=== PATIENT | male | born 1980 | race Hispanic/Latino ===

== ENCOUNTER 2020-04-26 10:16 | Inpatient (IN) | payer OTHER ==
[~2020-04-26] VITALS: Ht 172.7 cm; Wt 169.8 kg
[2020-04-26 11:18] LABS: BASOPHILS % (AUTO) 0.2 % (0.0-5.0); EOSINOPHILS % (AUTO) 0.4 % (0.0-8.0); HEMATOCRIT 36.3 % (42-54); LYMPHOCYTES % (AUTO) 10.6 % (21.0-51.0); MEAN CORPUSCULAR HEMOGLOBIN 28.8 pg (27.0-33.0); MEAN CORPUSCULAR HGB CONC 33.9 g/dL (32.0-36.0); MONOCYTES % (AUTO) 10.8 % (3.0-13.0); NEUTROPHILS % (AUTO) 76.6 % (40.0-77.0); NUCLEATED RED BLOOD CELLS 0.2 % (0.0-0.19); PLATELET COUNT (AUTO) 109 K/uL (130-400); RED BLOOD CELL COUNT(AUTO) 4.27 MIL/uL (4.50-6.20); RED CELL DISTRIBUTION WIDTH 14.7 % (11.0-15.5)
[2020-04-26] MEDS ORDERED: SODIUM CHLORIDE 0.9% 1000ML 1,000 ML IV ONE ×2 (11:22→16:48)
[2020-04-26 11:31] LABS: APPEARANCE,URINE Clear (CLEAR); BILIRUBIN,URINE Small (NEGATIVE); COLOR,URINE Dark Yellow (YELLOW); GLUCOSE, URINE (UA) Negative (NEGATIVE); KETONES,URINE 40 mg/dL (NEGATIVE); LEUKOCYTE ESTERASE ,URINE Trace (NEGATIVE); NITRATE,URINE Negative (NEGATIVE); OCCULT BLOOD,URINE Negative (NEGATIVE); PROTEIN,URINE POS 2+ mg/dL (NEGATIVE)
[2020-04-26] MEDS ORDERED: THIAMINE HCL 100 MG/ML 2ML VIAL ONE (11:31)
[2020-04-26 11:32] LABS: ALANINE AMINOTRANSFERASE 60 U/L (12-78); ALBUMIN 3.1 g/dL (3.5-5.0); ALCOHOL, BLOOD < 3 mg/dL (0-10); ASPARTATE AMINOTRANSFERASE 182 U/L (10-37); BILIRUBIN,DIRECT 1.3 mg/dL (0.0-0.3); BILIRUBIN,TOTAL 2.8 mg/dL (0.2-1.0); CARBON DIOXIDE 28 mmol/L (21-32); CREATININE 0.8 mg/dL (0.5-1.5); GLOMERULAR FILTR. RATE CALC 114 mL/min (>60); GLUCOSE,RANDOM 151 mg/dL (70-105); POTASSIUM 3.8 mmol/L (3.5-5.1); SODIUM SERUM 116 mmol/L (136-145); TOTAL PROTEIN, SERUM 10.6 g/dL (6.0-8.3); UREA NITROGEN, BLOOD 5 mg/dL (7-18)
[2020-04-26 11:36] LABS: CHLORIDE 79 mmol/L (101-111); CREATINE KINASE, TOTAL 1375 U/L (21-232)
[2020-04-26 11:37] LABS: AMPHET/METH SCREEN,URINE NEGATIVE (NEGATIVE); BARBITURATE SCREEN, URINE NEGATIVE (NEGATIVE); BENZODIAZEPINES SCREEN,URINE NEGATIVE (NEGATIVE); CANNABINOID SCREEN,URINE NEGATIVE (NEGATIVE); COCAINE SCREEN,URINE NEGATIVE (NEGATIVE); OPIATE SCREEN,URINE NEGATIVE (NEGATIVE); PHENCYCLIDINE SCREEN,URINE NEGATIVE (NEGATIVE)
[2020-04-26 11:49] LABS: INR 1.14 (0.85-1.15); PROTHROMBIN TIME 12.1 SEC (9.6-11.6)
[2020-04-26 11:50] LABS: PARTIAL THROMBOPLASTIN TIME 28.1 SEC (26.3-35.5)
[2020-04-26 11:56] LABS: RBC,URINE 0-1 /HPF (0-1)
[2020-04-26 11:57] LABS: BACTERIA,URINE Few /HPF (None Seen); WBC,URINE 0-1 /HPF (0-1)
[2020-04-26] MEDS ORDERED: ASPIRIN 81MG TAB.CHEW ONE ×2 (11:59→12:02)
[2020-04-26 12:15] LABS: B-TYPE NATRIURETIC PEPTIDE 981 pg/mL (0-100)
[2020-04-26] MEDS ORDERED: ENOXAPARIN SODIUM 100 MG/1 ML SQ ONE (12:24)
[2020-04-26] MEDS ORDERED: ONDANSETRON HCL 4 MG/2 ML VIAL IV PRN ×2 (13:30)
[2020-04-26] MEDS ORDERED: PANTOPRAZOLE SODIUM 40 MG TABLET.DR PO SCH (13:30)
[2020-04-26] MEDS ORDERED: NITROGLYCERIN 0.4 MG SL TAB SL PRN (13:30)
[2020-04-26] MEDS ORDERED: MAG HYDROX/AL HYDROX/SIMETH ES 30 ML SUSP UDCUP PO PRN (13:30)
[2020-04-26] MEDS ORDERED: ACETAMINOPHEN EXTRA STRENGTH 500 MG TABLET PO PRN (13:30)
[2020-04-26] MEDS ORDERED: PHARMACY COMMUNICATION MISC PRN (13:30)
[2020-04-26] MEDS ORDERED: DIPHENHYDRAMINE HCL 25 MG CAPSULE PO PRN (13:30)
[2020-04-26] MEDS ORDERED: LORAZEPAM 2 MG/ML 1 ML VIAL IVP PRN ×2 (13:30)
[2020-04-26] MEDS ORDERED: LACTULOSE 20 GM/30 ML UDCUP PO PRN (13:30)
[2020-04-26] MEDS ORDERED: ACETAMINOPHEN 325 MG TAB PO PRN ×2 (13:30)
[2020-04-26] MEDS ORDERED: THIAMINE HCL 100 MG, FOLIC ACID 1 MG, M.V.I. IV [ADULT] 10 ML in SODIUM CHLORIDE 0.9% 1... IV SCH (13:30)
[2020-04-26] MEDS ORDERED: CHLORDIAZEPOXIDE HCL 25 MG CAP PO PRN ×2 (13:30)
[2020-04-26] MEDS ORDERED: GUAIFENESIN-DM 200/20 MG 10 ML PO PRN (13:30)
[2020-04-26] MEDS ORDERED: DiphenhydrAMINE HCL 50 MG/ML VIAL IV PRN (13:30)
[2020-04-26] MEDS ORDERED: FUROSEMIDE 10 MG/ML 4ML VIAL IV SCH (13:30)
[2020-04-26] MEDS ORDERED: PROMETHAZINE HCL 25 MG TABLET PO PRN (13:30)
[2020-04-26 13:34] LABS: MAGNESIUM 1.9 mg/dL (1.80-2.40); PHOSPHORUS 1.9 mg/dL (2.5-4.9)
[2020-04-26] MEDS ORDERED: METOPROLOL TARTRATE 25 MG TAB PO SCH ×2 (13:45→14:15)
[2020-04-26 13:58] LABS: CREATININE 0.7 mg/dL (0.5-1.5); POTASSIUM 3.5 mmol/L (3.5-5.1)
[2020-04-26] MEDS ORDERED: LOSARTAN 50 MG TABLET PO SCH (14:15)
[2020-04-26] MEDS ORDERED: EPINEPHRINE 0.1 MG/ML 10 ML SYG IVP ONE (14:16)
[2020-04-26] MEDS ORDERED: METOPROLOL TARTRATE 25 MG TAB ONE ×2 (14:39→15:01)
[2020-04-26] MEDS ORDERED: LOSARTAN 50 MG TABLET ONE (14:39)
[2020-04-26] MEDS ORDERED: PANTOPRAZOLE SODIUM 40 MG TABLET.DR ONE (14:48)
[2020-04-26] MEDS ORDERED: FUROSEMIDE 10 MG/ML 4ML VIAL ONE ×2 (14:48→20:46)
[2020-04-26] MEDS ORDERED: LEVOTHYROXINE 150 MCG TABLET ONE (14:52)
[2020-04-26] MEDS ORDERED: Vitamin B Complex/Vit C/Folic Acid ONE (15:08)
[2020-04-26] MEDS ORDERED: NOREPINEPHRINE 4MG/NS 250ML 250 ML IV ONE ×4 (15:28→22:44)
[2020-04-26] MEDS ORDERED: FAMOTIDINE/PF 20 MG/2 ML VIAL IV ONE (15:41)
[2020-04-26] MEDS ORDERED: VANCOMYCIN PROTOCOL PER PHARMACY IV SCH (15:45)
[2020-04-26] MEDS: ZOSYN 3.375GM+NS 50ML 50 ML IV SCH ×2 (15:45→23:45)
[2020-04-26] MEDS ORDERED: PROPOFOL 1000 MG/100 ML 100 ML IV ONE ×4 (15:57→22:52)
[2020-04-26] MEDS ORDERED: FENTANYL 2500MCG+NS 250ML 250 ML IV ONE (15:57)
[2020-04-26] MEDS: VANCOMYCIN 1.5 GM in SODIUM CHLORIDE 0.9% 250 ML IV SCH (16:00)
[2020-04-26] MEDS ORDERED: COMPOUND IV REFRIGERATED 1 EACH IVSOLN MISC PRN (16:00)
[2020-04-26 16:18] LABS: ABG BASE EXCESS -4.3 mmol/L (-2.0-3.0); ABG HCO3 24.7 mmol/L (21.0-28.0); ABG OXYGEN SATURATION 95.2 % (95.0-99.0); ABG PCO2 64 mmHg (35-48)
[2020-04-26 16:23] LABS: BILIRUBIN,TOTAL 2.9 mg/dL (0.2-1.0); CREATININE 0.7 mg/dL (0.5-1.5); POTASSIUM 4.6 mmol/L (3.5-5.1); TOTAL PROTEIN, SERUM 10.6 g/dL (6.0-8.3)
[2020-04-26] MEDS ORDERED: ZOSYN 3.375GM+NS 50ML 50 ML IV ONE (17:19)
[2020-04-26 17:21] LABS: ABG BASE EXCESS 0.3 mmol/L (-2.0-3.0); ABG HCO3 25.4 mmol/L (21.0-28.0); ABG OXYGEN SATURATION 98.8 % (95.0-99.0); ABG PCO2 42 mmHg (35-48)
[2020-04-26] MEDS: SODIUM CHLORIDE 0.9% 1000ML 1,000 ML IV SCH (18:30)
[2020-04-26 18:36] LABS: PROTEIN,URINE RANDOM 108.7 mg/dL (0-11.9)
[2020-04-26 19:23] LABS: CREATININE 1.1 mg/dL (0.5-1.5); POTASSIUM 3.3 mmol/L (3.5-5.1)
[2020-04-26] MEDS ORDERED: IOHEXOL 350 MG/ML 100ML INFUS..BTL IV ONE (19:53)
[2020-04-26] MEDS ORDERED: EPINEPHRINE 0.1 MG/ML 10 ML SYG ONE (20:03)
[2020-04-26] MEDS ORDERED: METOPROLOL TARTRATE 1 MG/ML 5ML VIAL IV ONE (20:45)
[2020-04-26] MEDS: FUROSEMIDE 10 MG/ML 4ML VIAL IV SCH (22:00)
[2020-04-26] MEDS ORDERED: LORAZEPAM 2 MG/ML 1 ML VIAL ONE (23:33)
[2020-04-26] MEDS ORDERED: SODIUM CHLORIDE 0.9% 250 ML IV ONE (23:34)
[2020-04-26] MEDS ORDERED: PHENYLEPHRINE HCL 10 MG/ML 1ML VIAL IV ONE ×2 (23:34→23:39)
[2020-04-27] VITALS (40 sets, daily range): BP systolic 81–142; BP diastolic 43–86
[2020-04-27] MEDS ORDERED: ZOSYN 3.375GM+NS 50ML 50 ML IV ONE (00:01)
[2020-04-27] MEDS ORDERED: NOREPINEPHRINE 4MG/NS 250ML 250 ML IV ONE ×3 (00:42→10:09)
[2020-04-27] MEDS ORDERED: PROPOFOL 1000 MG/100 ML 100 ML IV ONE ×6 (01:15→12:39)
[2020-04-27 03:12] LABS: ABG BASE EXCESS -2.1 mmol/L (-2.0-3.0); ABG HCO3 23.7 mmol/L (21.0-28.0); ABG OXYGEN SATURATION 99.7 % (95.0-99.0); ABG PCO2 45 mmHg (35-48)
[2020-04-27] MEDS ORDERED: METOPROLOL TARTRATE 1 MG/ML 5ML VIAL IV ONE (04:20)
[2020-04-27 04:47] LABS: BASOPHILS % (AUTO) 0.5 % (0.0-5.0); EOSINOPHILS % (AUTO) 0.6 % (0.0-8.0); HEMATOCRIT 35.8 % (42-54); LYMPHOCYTES % (AUTO) 9.9 % (21.0-51.0); MEAN CORPUSCULAR HEMOGLOBIN 28.8 pg (27.0-33.0); MEAN CORPUSCULAR HGB CONC 32.1 g/dL (32.0-36.0); MEAN CORPUSCULAR VOLUME 89.7 fL (79-99); MONOCYTES % (AUTO) 11.2 % (3.0-13.0); NEUTROPHILS % (AUTO) 77.1 % (40.0-77.0); NUCLEATED RED BLOOD CELLS 0.2 % (0.0-0.19); PLATELET COUNT (AUTO) 99 K/uL (130-400); RED BLOOD CELL COUNT(AUTO) 3.99 MIL/uL (4.50-6.20); WHITE BLOOD COUNT (AUTO) 10.2 K/uL (4.8-10.8)
[2020-04-27 05:03] LABS: B-TYPE NATRIURETIC PEPTIDE 758 pg/mL (0-100)
[2020-04-27 05:15] LABS: ALBUMIN 2.7 g/dL (3.5-5.0); BILIRUBIN,TOTAL 2.1 mg/dL (0.2-1.0); CREATININE 1.5 mg/dL (0.5-1.5); MAGNESIUM 2.1 mg/dL (1.80-2.40); PHOSPHORUS 4.2 mg/dL (2.5-4.9); POTASSIUM 3.2 mmol/L (3.5-5.1); TOTAL PROTEIN, SERUM 9.2 g/dL (6.0-8.3)
[2020-04-27] MEDS: FUROSEMIDE 10 MG/ML 4ML VIAL IV SCH ×2 (06:00→13:51)
[2020-04-27] MEDS: LEVOTHYROXINE 150 MCG TABLET PO SCH (06:30)
[2020-04-27] MEDS: SODIUM CHLORIDE 0.9% 1000ML 1,000 ML IV SCH (07:50)
[2020-04-27] MEDS ORDERED: ALBUMIN (HUMAN) 25% 50 ML IV SCH (08:15)
[2020-04-27] MEDS: LACTULOSE 20 GM/30 ML UDCUP NG SCH ×2 (08:46→16:11)
[2020-04-27] MEDS: RIFAXIMIN 550 MG TABLET NG SCH ×2 (08:47→21:04)
[2020-04-27] MEDS: VANCOMYCIN 1.5 GM in SODIUM CHLORIDE 0.9% 250 ML IV SCH ×4 (08:47→16:00)
[2020-04-27] MEDS: ZOSYN 3.375GM+NS 50ML 50 ML IV SCH (08:47)
[2020-04-27] MEDS ORDERED: ASPIRIN 325 MG TABLET PO SCH (09:00)
[2020-04-27] MEDS ORDERED: ENOXAPARIN SODIUM 40 MG/0.4 ML SYRINGE SQ SCH (09:00)
[2020-04-27] MEDS ORDERED: PANTOPRAZOLE 40 MG/VIAL IVP SCH (09:00)
[2020-04-27] MEDS ORDERED: LORAZEPAM 2 MG/ML 1 ML VIAL IVP SCH (10:52)
[2020-04-27] MEDS ORDERED: AMIODARONE HCL 360 MG in DEXTROSE 5%-WATER 200 ML IV SCH ×2 (11:00→11:15)
[2020-04-27] MEDS ORDERED: AMIODARONE HCL 150 MG in DEXTROSE 5%-WATER 100 ML IV SCH ×2 (11:00→11:15)
[2020-04-27] MEDS ORDERED: AMIODARONE HCL 450 MG in DEXTROSE 5%-WATER 250 ML IV SCH (11:15)
[2020-04-27] MEDS ORDERED: COMPOUND NARC IV MISC 1 EACH IVSOLN MISC PRN (12:00)
[2020-04-27] MEDS: SODIUM CHLORIDE 0.9% IVP SCH (12:02)
[2020-04-27] MEDS: LORAZEPAM IVP SCH (12:02)
[2020-04-27] MEDS ORDERED: PHENYLEPHRINE HCL 10 MG/ML 1ML VIAL IV ONE (12:07)
[2020-04-27] MEDS ORDERED: PHENYLEPHRINE HCL 50 MG in SODIUM CHLORIDE 0.9% 245 ML IV PRN (12:15)
[2020-04-27] MEDS ORDERED: PHARMACY COMMUNICATION MISC SCH (12:45)
[2020-04-27] MEDS: CEFEPIME HCL 1 GM VIAL IVP SCH (13:14)
[2020-04-27] MEDS ORDERED: POTASSIUM CHLORIDE 10% ELIXIR 20 MEQ/15 ML UDCUP PO PRN (13:45)
[2020-04-27] MEDS ORDERED: LIDOCAINE HCL-MPF 1% 2ML VIAL IV PRN ×2 (13:45)
[2020-04-27] MEDS ORDERED: POTASSIUM CHLORIDE 20 MEQ ERTAB PO PRN (13:45)
[2020-04-27 13:48] LABS: CREATININE 1.9 mg/dL (0.5-1.5); POTASSIUM 3.2 mmol/L (3.5-5.1)
[2020-04-27] MEDS: POTASSIUM CHLORIDE 10MEQ/100ML 100 ML IV PRN ×2 (13:53→16:13)
[2020-04-27] MEDS: PROPOFOL 1000 MG/100 ML 100 ML IV SCH ×3 (16:13→22:59)
[2020-04-27] MEDS: AMIODARONE HCL 450 MG in DEXTROSE 5%-WATER 250 ML IV SCH (17:11)
[2020-04-27] MEDS ORDERED: SODIUM CHLORIDE 0.9% 1000ML 1,000 ML IV ONE (19:12)
[2020-04-27 20:31] LABS: CREATININE 3.1 mg/dL (0.5-1.5); POTASSIUM 4.1 mmol/L (3.5-5.1)
[2020-04-27] MEDS: PHENYLEPHRINE HCL 100 MG in SODIUM CHLORIDE 0.9% 250 ML IV PRN (21:02)
[2020-04-27] MEDS: PANTOPRAZOLE 40 MG/VIAL IVP SCH (21:04)
[2020-04-27] MEDS: SUCRALFATE 1 GM TABLET GT SCH (21:04)
[2020-04-28] VITALS (37 sets, daily range): BP systolic 106–135; BP diastolic 50–70
[2020-04-28] MEDS: LACTULOSE 20 GM/30 ML UDCUP NG SCH ×4 (00:26→23:44)
[2020-04-28] MEDS: CEFEPIME HCL 1 GM VIAL IVP SCH ×2 (00:26→12:29)
[2020-04-28 00:51] LABS: CREATININE 3.7 mg/dL (0.5-1.5); POTASSIUM 3.9 mmol/L (3.5-5.1)
[2020-04-28] MEDS: PHENYLEPHRINE HCL 100 MG in SODIUM CHLORIDE 0.9% 250 ML IV PRN ×3 (01:54→15:07)
[2020-04-28] MEDS: PROPOFOL 1000 MG/100 ML 100 ML IV SCH ×6 (02:45→23:05)
[2020-04-28 03:39] LABS: ABG BASE EXCESS -5.4 mmol/L (-2.0-3.0); ABG HCO3 21.5 mmol/L (21.0-28.0); ABG OXYGEN SATURATION 95.8 % (95.0-99.0); ABG PCO2 47 mmHg (35-48)
[2020-04-28] MEDS: INSULIN HUMULIN R 100 UNIT/ML 3ML SQ SCH ×5 (06:00→23:44)
[2020-04-28] MEDS: LEVOTHYROXINE 150 MCG TABLET PO SCH (06:17)
[2020-04-28 06:20] LABS: CREATININE 3.8 mg/dL (0.5-1.5); POTASSIUM 3.6 mmol/L (3.5-5.1)
[2020-04-28 06:30] LABS: ALBUMIN 2.3 g/dL (3.5-5.0); BILIRUBIN,TOTAL 2.6 mg/dL (0.2-1.0); MAGNESIUM 2.1 mg/dL (1.80-2.40); PHOSPHORUS 6.6 mg/dL (2.5-4.9); TOTAL PROTEIN, SERUM 8.6 g/dL (6.0-8.3)
[2020-04-28] MEDS: VANCOMYCIN 1.5 GM in SODIUM CHLORIDE 0.9% 250 ML IV SCH ×4 (08:00→15:24)
[2020-04-28] MEDS: AMIODARONE HCL 450 MG in DEXTROSE 5%-WATER 250 ML IV SCH (08:02)
[2020-04-28] MEDS: RIFAXIMIN 550 MG TABLET NG SCH ×2 (08:38→21:00)
[2020-04-28] MEDS: PANTOPRAZOLE 40 MG/VIAL IVP SCH ×2 (08:38→21:04)
[2020-04-28] MEDS: SUCRALFATE 1 GM TABLET GT SCH ×2 (08:38→21:00)
[2020-04-28 08:40] LABS: CREATININE 3.9 mg/dL (0.5-1.5); MAGNESIUM 2.1 mg/dL (1.80-2.40); POTASSIUM 3.6 mmol/L (3.5-5.1)
[2020-04-28 09:09] LABS: HEMATOCRIT 34.9 % (42-54); MEAN CORPUSCULAR HEMOGLOBIN 28.7 pg (27.0-33.0); MEAN CORPUSCULAR HGB CONC 31.8 g/dL (32.0-36.0); MEAN CORPUSCULAR VOLUME 90.2 fL (79-99); NUCLEATED RED BLOOD CELLS 0.2 % (0.0-0.19); PLATELET COUNT (AUTO) 155 K/uL (130-400); RED BLOOD CELL COUNT(AUTO) 3.87 MIL/uL (4.50-6.20); RED CELL DISTRIBUTION WIDTH 16.4 % (11.0-15.5); WHITE BLOOD COUNT (AUTO) 15.8 K/uL (4.8-10.8)
[2020-04-28 09:10] LABS: BAND NEUTROPHILS % (MANUAL) 2 % (0-2); BASOPHILS % (MANUAL) 1 % (0-2); EOSINOPHILS % (MANUAL) 2 % (1-6); LYMPHOCYTES % (MANUAL) 25 % (22-44); MAN.DIFF COMMENT-IMPRESSION MANUAL DIFFERENTIAL; MONOCYTES % (MANUAL) 3 % (2-9); PLATELET MORPHOLOGY COMMENT ADEQUATE; SEGMENTED NEUTROPHILS % 67 % (40-70)
[2020-04-28 09:14] LABS: INR 1.24 (0.85-1.15)
[2020-04-28 09:16] LABS: PARTIAL THROMBOPLASTIN TIME 30.1 SEC (26.3-35.5)
[2020-04-28] MEDS ORDERED: FENTANYL CITRATE PF 0.05 MG/ML 2,500 MCG in SODIUM CHLORIDE 0.9% 250 ML IVPB SCH (10:00)
[2020-04-28] MEDS: ALBUMIN (HUMAN) 25% 50 ML IV SCH ×2 (13:13→20:07)
[2020-04-28] MEDS: MIDODRINE HCL 5 MG TABLET PO SCH ×2 (13:23→21:00)
[2020-04-28] MEDS: OCTREOTIDE ACETATE 100 MCG/ML AMP SQ SCH ×2 (13:23→21:04)
[2020-04-28] MEDS ORDERED: HYDR25TA PO (17:03)
[2020-04-28] MEDS ORDERED: BENA10TA77 PO (17:03)
[2020-04-28] MEDS ORDERED: FURO20TA4 PO (17:03)
[2020-04-28 19:11] LABS: ALBUMIN 2.4 g/dL (3.5-5.0); BILIRUBIN,TOTAL 2.5 mg/dL (0.2-1.0); CREATININE 5.5 mg/dL (0.5-1.5); POTASSIUM 4.3 mmol/L (3.5-5.1); TOTAL PROTEIN, SERUM 8.8 g/dL (6.0-8.3)
[2020-04-28] MEDS ORDERED: VANCOMYCIN 1.5 GM in SODIUM CHLORIDE 0.9% 250 ML IV SCH (19:45)
[2020-04-29] VITALS (24 sets, daily range): BP systolic 103–147; BP diastolic 45–77
[2020-04-29] MEDS: CEFEPIME HCL 1 GM VIAL IVP SCH ×2 (01:51→12:19)
[2020-04-29] MEDS: PROPOFOL 1000 MG/100 ML 100 ML IV SCH ×4 (02:26→22:53)
[2020-04-29] MEDS: PHENYLEPHRINE HCL 100 MG in SODIUM CHLORIDE 0.9% 250 ML IV PRN (02:28)
[2020-04-29] MEDS: SODIUM CHLORIDE 0.9% IVP SCH (02:40)
[2020-04-29] MEDS: LORAZEPAM IVP SCH (02:40)
[2020-04-29] MEDS: ALBUMIN (HUMAN) 25% 50 ML IV SCH ×3 (03:41→20:52)
[2020-04-29 04:15] LABS: ABG BASE EXCESS -7.5 mmol/L (-2.0-3.0); ABG HCO3 19.4 mmol/L (21.0-28.0); ABG OXYGEN SATURATION 95.6 % (95.0-99.0); ABG PCO2 44 mmHg (35-48)
[2020-04-29 04:56] LABS: BASOPHILS % (AUTO) 0.6 % (0.0-5.0); EOSINOPHILS % (AUTO) 2.8 % (0.0-8.0); HEMATOCRIT 34.5 % (42-54); LYMPHOCYTES % (AUTO) 11.1 % (21.0-51.0); MEAN CORPUSCULAR HGB CONC 31.3 g/dL (32.0-36.0); MEAN CORPUSCULAR VOLUME 92.7 fL (79-99); MONOCYTES % (AUTO) 8.9 % (3.0-13.0); NEUTROPHILS % (AUTO) 75.4 % (40.0-77.0); PLATELET COUNT (AUTO) 148 K/uL (130-400); RED BLOOD CELL COUNT(AUTO) 3.72 MIL/uL (4.50-6.20); WHITE BLOOD COUNT (AUTO) 15.8 K/uL (4.8-10.8)
[2020-04-29 05:02] LABS: ALBUMIN 2.4 g/dL (3.5-5.0); BILIRUBIN,DIRECT 2.2 mg/dL (0.0-0.3); BILIRUBIN,TOTAL 2.5 mg/dL (0.2-1.0); CREATININE 6.4 mg/dL (0.5-1.5); TOTAL PROTEIN, SERUM 8.6 g/dL (6.0-8.3)
[2020-04-29 05:32] LABS: INR 1.24 (0.85-1.15)
[2020-04-29] MEDS: INSULIN HUMULIN R 100 UNIT/ML 3ML SQ SCH ×3 (06:00→18:00)
[2020-04-29] MEDS: LACTULOSE 20 GM/30 ML UDCUP NG SCH ×3 (06:00→16:40)
[2020-04-29] MEDS: LEVOTHYROXINE 150 MCG TABLET PO SCH (06:22)
[2020-04-29 08:13] LABS: HEPATITIS A ANTIBODY IGM Negative (Negative); HEPATITIS B CORE IGM Negative (Negative); HEPATITIS Bs ANTIGEN SCREEN P Negative (Negative)
[2020-04-29] MEDS ORDERED: PHARMACY COMMUNICATION MISC SCH (08:15)
[2020-04-29] MEDS ORDERED: LACTULOSE 20 GM/30 ML UDCUP PR SCH (08:30)
[2020-04-29] MEDS: RIFAXIMIN 550 MG TABLET NG SCH ×2 (09:07→20:30)
[2020-04-29] MEDS: SUCRALFATE 1 GM TABLET GT SCH ×2 (09:07→20:29)
[2020-04-29] MEDS: OCTREOTIDE ACETATE 100 MCG/ML AMP SQ SCH ×3 (09:07→20:31)
[2020-04-29] MEDS: PANTOPRAZOLE 40 MG/VIAL IVP SCH ×2 (09:07→20:30)
[2020-04-29] MEDS: MIDODRINE HCL 5 MG TABLET PO SCH ×3 (09:07→20:30)
[2020-04-29] MEDS ORDERED: THIAMINE HCL 100 MG TABLET PO SCH (14:15)
[2020-04-29] MEDS ORDERED: FOLIC ACID 5 MG/ML 10 ML VIAL IV SCH (14:15)
[2020-04-29] MEDS ORDERED: HEPARIN SODIUM 5000UNIT/ML 1ML VIAL ONE (15:42)
[2020-04-29 17:35] LABS: HEMATOCRIT 34.3 % (42-54)
[2020-04-29 18:07] LABS: ALBUMIN 2.4 g/dL (3.5-5.0); CREATININE 7.4 mg/dL (0.5-1.5)
[2020-04-29] MEDS ORDERED: SODIUM CHLORIDE 0.9% 1000ML 1,000 ML IV PRN (18:30)
[2020-04-29] MEDS ORDERED: ACETAMINOPHEN 325 MG TAB PO PRN (18:30)
[2020-04-29] MEDS ORDERED: 0.9% SODIUM CHLORIDE 1000 ML IV BAG IV PRN (18:30)
[2020-04-29] MEDS ORDERED: HEPARIN SODIUM 5000UNIT/ML 1ML VIAL IJ PRN (18:30)
[2020-04-30] VITALS (24 sets, daily range): BP systolic 100–128; BP diastolic 47–69
[2020-04-30] MEDS: CEFEPIME HCL 1 GM VIAL IVP SCH ×2 (01:25→12:56)
[2020-04-30] MEDS: LACTULOSE 20 GM/30 ML UDCUP NG SCH ×4 (01:26→18:00)
[2020-04-30] MEDS: FENTANYL 2500MCG+NS 250ML 250 ML IV SCH (01:39)
[2020-04-30] MEDS: PROPOFOL 1000 MG/100 ML 100 ML IV SCH ×4 (01:41→19:28)
[2020-04-30] MEDS ORDERED: SODIUM CHLORIDE 0.9% 250 ML IV ONE (03:07)
[2020-04-30] MEDS ORDERED: PHENYLEPHRINE HCL 10 MG/ML 1ML VIAL IV ONE ×2 (03:09→03:11)
[2020-04-30] MEDS: ALBUMIN (HUMAN) 25% 50 ML IV SCH (03:45)
[2020-04-30 04:05] LABS: ABG BASE EXCESS -8.3 mmol/L (-2.0-3.0); ABG HCO3 18.6 mmol/L (21.0-28.0); ABG OXYGEN SATURATION 97.1 % (95.0-99.0); ABG PCO2 43 mmHg (35-48)
[2020-04-30 05:47] LABS: BASOPHILS % (AUTO) 0.5 % (0.0-5.0); EOSINOPHILS % (AUTO) 2.7 % (0.0-8.0); HEMATOCRIT 33.8 % (42-54); LYMPHOCYTES % (AUTO) 8.8 % (21.0-51.0); MEAN CORPUSCULAR HEMOGLOBIN 29.2 pg (27.0-33.0); MEAN CORPUSCULAR HGB CONC 31.7 g/dL (32.0-36.0); MEAN CORPUSCULAR VOLUME 92.3 fL (79-99); MONOCYTES % (AUTO) 7.3 % (3.0-13.0); NEUTROPHILS % (AUTO) 79.2 % (40.0-77.0); PLATELET COUNT (AUTO) 129 K/uL (130-400); RED BLOOD CELL COUNT(AUTO) 3.66 MIL/uL (4.50-6.20); RED CELL DISTRIBUTION WIDTH 17.2 % (11.0-15.5); WHITE BLOOD COUNT (AUTO) 17.2 K/uL (4.8-10.8)
[2020-04-30] MEDS: INSULIN HUMULIN R 100 UNIT/ML 3ML SQ SCH ×4 (06:00→17:57)
[2020-04-30 06:31] LABS: ALBUMIN 2.3 g/dL (3.5-5.0); BILIRUBIN,DIRECT 2.3 mg/dL (0.0-0.3); BILIRUBIN,TOTAL 2.7 mg/dL (0.2-1.0); TOTAL PROTEIN, SERUM 8.6 g/dL (6.0-8.3)
[2020-04-30] MEDS: LEVOTHYROXINE 150 MCG TABLET PO SCH (06:43)
[2020-04-30] MEDS: FOLIC ACID 5 MG/ML 10 ML VIAL IV SCH (09:00)
[2020-04-30] MEDS: OCTREOTIDE ACETATE 100 MCG/ML AMP SQ SCH ×3 (09:00→20:08)
[2020-04-30] MEDS ORDERED: LACTULOSE 20 GM/30 ML UDCUP PR SCH (09:45)
[2020-04-30] MEDS ORDERED: PHARMACY COMMUNICATION MISC SCH (09:45)
[2020-04-30] MEDS: PANTOPRAZOLE 40 MG/VIAL IVP SCH ×2 (10:02→19:41)
[2020-04-30] MEDS: THIAMINE HCL 100 MG/ML 2ML VIAL IVP SCH (10:02)
[2020-04-30] MEDS: RIFAXIMIN 550 MG TABLET NG SCH ×2 (10:02→19:41)
[2020-04-30] MEDS: MIDODRINE HCL 5 MG TABLET PO SCH ×3 (10:02→19:46)
[2020-04-30] MEDS: SUCRALFATE 1 GM TABLET GT SCH ×2 (10:02→19:41)
[2020-04-30] MEDS: PHENYLEPHRINE HCL 100 MG in SODIUM CHLORIDE 0.9% 250 ML IV PRN (11:23)
[2020-04-30] MEDS: DOXYCYCLINE 100MG+NS 250ML 250 ML IV SCH (12:56)
[2020-04-30] MEDS ORDERED: DEXMEDETOMIDINE HCL 400 MCG in SODIUM CHLORIDE 0.9% 100 ML IV STA (15:26)
[2020-04-30] MEDS: METOCLOPRAMIDE 10 MG/2 ML VIAL IVP SCH (18:00)
[2020-04-30] MEDS: DEXMEDETOMIDINE HCL 400 MCG in SODIUM CHLORIDE 0.9% 100 ML IV SCH (21:52)
[2020-04-30] MEDS ORDERED: METOCLOPRAMIDE 10 MG/2 ML VIAL IVP SCH (22:00)
[2020-05-01] VITALS (24 sets, daily range): BP systolic 95–135; BP diastolic 43–69
[2020-05-01] MEDS: LACTULOSE 20 GM/30 ML UDCUP NG SCH ×6 (00:19→20:49)
[2020-05-01] MEDS: CEFEPIME HCL 1 GM VIAL IVP SCH ×2 (00:20→13:20)
[2020-05-01] MEDS: METOCLOPRAMIDE 10 MG/2 ML VIAL IVP SCH ×4 (00:20→17:25)
[2020-05-01] MEDS: DOXYCYCLINE 100MG+NS 250ML 250 ML IV SCH ×2 (00:20→11:22)
[2020-05-01] MEDS: PHENYLEPHRINE HCL 100 MG in SODIUM CHLORIDE 0.9% 250 ML IV PRN ×3 (00:47→20:03)
[2020-05-01] MEDS: PROPOFOL 1000 MG/100 ML 100 ML IV SCH ×3 (04:05→10:22)
[2020-05-01] MEDS: DEXMEDETOMIDINE HCL 400 MCG in SODIUM CHLORIDE 0.9% 100 ML IV SCH ×8 (04:07→23:13)
[2020-05-01 05:15] LABS: ABG BASE EXCESS -14.7 mmol/L (-2.0-3.0); ABG HCO3 14.5 mmol/L (21.0-28.0); ABG OXYGEN SATURATION 91.9 % (95.0-99.0); ABG PCO2 46 mmHg (35-48)
[2020-05-01] MEDS: INSULIN HUMULIN R 100 UNIT/ML 3ML SQ SCH ×4 (05:34→17:20)
[2020-05-01 05:44] LABS: HEMATOCRIT 36.1 % (42-54); MEAN CORPUSCULAR HEMOGLOBIN 28.2 pg (27.0-33.0); MEAN CORPUSCULAR HGB CONC 30.2 g/dL (32.0-36.0); MEAN CORPUSCULAR VOLUME 93.5 fL (79-99); NUCLEATED RED BLOOD CELLS 0.3 % (0.0-0.19); RED BLOOD CELL COUNT(AUTO) 3.86 MIL/uL (4.50-6.20); RED CELL DISTRIBUTION WIDTH 17.7 % (11.0-15.5); WHITE BLOOD COUNT (AUTO) 14.4 K/uL (4.8-10.8)
[2020-05-01 06:26] LABS: ALBUMIN 2.3 g/dL (3.5-5.0); BILIRUBIN,DIRECT 2.4 mg/dL (0.0-0.3); BILIRUBIN,TOTAL 2.8 mg/dL (0.2-1.0); POTASSIUM 4.8 mmol/L (3.5-5.1); TOTAL PROTEIN, SERUM 9.3 g/dL (6.0-8.3)
[2020-05-01] MEDS: LEVOTHYROXINE 150 MCG TABLET PO SCH (06:41)
[2020-05-01 06:43] LABS: CREATININE 10.1 mg/dL (0.5-1.5)
[2020-05-01 06:52] LABS: MAGNESIUM 2.7 mg/dL (1.80-2.40)
[2020-05-01] MEDS ORDERED: SODIUM BICARB 50MEQ 50ML VIAL IV SCH (07:45)
[2020-05-01] MEDS: PANTOPRAZOLE 40 MG/VIAL IVP SCH ×2 (07:50→20:49)
[2020-05-01] MEDS: SUCRALFATE 1 GM TABLET GT SCH ×2 (07:50→20:49)
[2020-05-01] MEDS: RIFAXIMIN 550 MG TABLET NG SCH ×2 (07:50→20:50)
[2020-05-01] MEDS: THIAMINE HCL 100 MG/ML 2ML VIAL IVP SCH (07:51)
[2020-05-01] MEDS: FENTANYL 2500MCG+NS 250ML 250 ML IV SCH (07:55)
[2020-05-01] MEDS: OCTREOTIDE ACETATE 100 MCG/ML AMP SQ SCH ×3 (08:26→21:20)
[2020-05-01] MEDS: MIDODRINE HCL 5 MG TABLET PO SCH ×3 (08:27→20:50)
[2020-05-01 10:07] LABS: INR 1.18 (0.85-1.15); PROTHROMBIN TIME 12.4 SEC (9.6-11.6)
[2020-05-01 10:08] LABS: PARTIAL THROMBOPLASTIN TIME 34.9 SEC (26.3-35.5)
[2020-05-01] MEDS ORDERED: ALBUMIN (HUMAN) 25% 100 ML IV ONE ×2 (10:08→10:10)
[2020-05-01] MEDS ORDERED: PHARMACY COMMUNICATION MISC SCH (11:15)
[2020-05-01] MEDS ORDERED: LACTULOSE 20 GM/30 ML UDCUP PR SCH (11:30)
[2020-05-01] MEDS: FOLIC ACID 5 MG/ML 10 ML VIAL IV SCH (13:27)
[2020-05-01] MEDS ORDERED: PERFLUTREN PROTEIN-A MICROSPHR 0.22 MG/ML VIAL IV ONE (16:00)
[2020-05-01] MEDS ORDERED: DEXTROSE 50%-WATER 50 ML DISP.SYRIN IV ONE ×3 (17:10→23:00)
[2020-05-01 20:29] LABS: MEAN CORPUSCULAR HEMOGLOBIN 28.7 pg (27.0-33.0); MEAN CORPUSCULAR VOLUME 95.8 fL (79-99); NUCLEATED RED BLOOD CELLS 1.1 % (0.0-0.19); RED BLOOD CELL COUNT(AUTO) 3.55 MIL/uL (4.50-6.20); RED CELL DISTRIBUTION WIDTH 18.1 % (11.0-15.5)
[2020-05-01 21:36] LABS: ABG BASE EXCESS -15.9 mmol/L (-2.0-3.0); ABG HCO3 14.1 mmol/L (21.0-28.0); ABG OXYGEN SATURATION 89.6 % (95.0-99.0); ABG PCO2 49 mmHg (35-48)
[2020-05-01] MEDS ORDERED: DEXTROSE 10%-WATER 1,000 ML IV SCH (23:00)
[2020-05-01] MEDS ORDERED: SODIUM BICARB 8.4% 50ML SYRING 150 MEQ in STERILE WATER INJ 1000ML BAG 1,000 ML IVP SCH (23:00)
[2020-05-01] MEDS ORDERED: DEXTROSE 10%-WATER 1,000 ML IV ONE (23:01)
[2020-05-02] VITALS (8 sets, daily range): BP systolic 60–103; BP diastolic 32–51
[2020-05-02] MEDS ORDERED: SODIUM BICARB 50MEQ 50ML VIAL 150 ML ONE (00:16)
[2020-05-02] MEDS: CEFEPIME HCL 1 GM VIAL IVP SCH (00:39)
[2020-05-02] MEDS: DOXYCYCLINE 100MG+NS 250ML 250 ML IV SCH (00:39)
[2020-05-02] MEDS: LACTULOSE 20 GM/30 ML UDCUP NG SCH ×3 (00:40→08:00)
[2020-05-02] MEDS: METOCLOPRAMIDE 10 MG/2 ML VIAL IVP SCH ×2 (00:40→05:49)
[2020-05-02] MEDS: FENTANYL 2500MCG+NS 250ML 250 ML IV SCH (01:42)
[2020-05-02] MEDS: DEXMEDETOMIDINE HCL 400 MCG in SODIUM CHLORIDE 0.9% 100 ML IV SCH ×2 (01:43→03:57)
[2020-05-02] MEDS: PHENYLEPHRINE HCL 100 MG in SODIUM CHLORIDE 0.9% 250 ML IV PRN (03:11)
[2020-05-02 03:55] LABS: ABG BASE EXCESS -16.3 mmol/L (-2.0-3.0); ABG HCO3 12.1 mmol/L (21.0-28.0); ABG OXYGEN SATURATION 80.1 % (95.0-99.0); ABG PCO2 37 mmHg (35-48)
[2020-05-02 04:18] LABS: ABG BASE EXCESS -17.1 mmol/L (-2.0-3.0); ABG HCO3 13.4 mmol/L (21.0-28.0); ABG OXYGEN SATURATION 86.7 % (95.0-99.0); ABG PCO2 50 mmHg (35-48)
[2020-05-02] MEDS ORDERED: DEXTROSE 50%-WATER 50 ML DISP.SYRIN IV ONE ×2 (04:38→04:41)
[2020-05-02 04:53] LABS: BASOPHILS % (AUTO) 0.2 % (0.0-5.0); EOSINOPHILS % (AUTO) 2.1 % (0.0-8.0); LYMPHOCYTES % (AUTO) 21.9 % (21.0-51.0); MEAN CORPUSCULAR HEMOGLOBIN 28.7 pg (27.0-33.0); MEAN CORPUSCULAR HGB CONC 29.4 g/dL (32.0-36.0); MEAN CORPUSCULAR VOLUME 97.7 fL (79-99); MONOCYTES % (AUTO) 10.6 % (3.0-13.0); NEUTROPHILS % (AUTO) 61.5 % (40.0-77.0); NUCLEATED RED BLOOD CELLS 1.3 % (0.0-0.19); PLATELET COUNT (AUTO) 154 K/uL (130-400); RED BLOOD CELL COUNT(AUTO) 3.48 MIL/uL (4.50-6.20); RED CELL DISTRIBUTION WIDTH 18.4 % (11.0-15.5); WHITE BLOOD COUNT (AUTO) 14.3 K/uL (4.8-10.8)
[2020-05-02 05:24] LABS: B-TYPE NATRIURETIC PEPTIDE 477 pg/mL (0-100)
[2020-05-02 05:28] LABS: INR 1.42 (0.85-1.15); PROTHROMBIN TIME 14.7 SEC (9.6-11.6)
[2020-05-02 05:43] LABS: ALBUMIN 2.3 g/dL (3.5-5.0); BILIRUBIN,DIRECT 3.2 mg/dL (0.0-0.3); BILIRUBIN,TOTAL 3.5 mg/dL (0.2-1.0); MAGNESIUM 2.8 mg/dL (1.80-2.40); POTASSIUM 5.5 mmol/L (3.5-5.1); TOTAL PROTEIN, SERUM 8.5 g/dL (6.0-8.3)
[2020-05-02] MEDS: LEVOTHYROXINE 150 MCG TABLET PO SCH (05:50)
[2020-05-02] MEDS: INSULIN HUMULIN R 100 UNIT/ML 3ML SQ SCH ×2 (05:56)
[2020-05-02] MEDS ORDERED: GLUCAGON 1MG KIT 1 MG ML IM PRN (06:00)
[2020-05-02] MEDS ORDERED: DEXTROSE 50%-WATER 50 ML DISP.SYRIN IV PRN (06:00)
[2020-05-02 06:05] LABS: CREATININE 11.1 mg/dL (0.5-1.5)
[2020-05-02 06:22] LABS: PHOSPHORUS 15.9 mg/dL (2.5-4.9)
[2020-05-02] MEDS ORDERED: NOREPINEPHRINE BITARTRATE 8 MG in DEXTROSE 5%-WATER 250 ML IV PRN (06:30)
[2020-05-02 07:16] LABS: HEPATITIS Bs ANTIGEN SCREEN P Negative (Negative)
[2020-05-02] MEDS ORDERED: VASOPRESSIN 40 UNITS in SODIUM CHLORIDE 0.9% 40 ML IV SCH (08:00)
[2020-05-02] MEDS: SUCRALFATE 1 GM TABLET GT SCH (08:44)
[2020-05-02] MEDS: MIDODRINE HCL 5 MG TABLET PO SCH (08:45)
[2020-05-02] MEDS: RIFAXIMIN 550 MG TABLET NG SCH (08:45)
[2020-05-02] MEDS ORDERED: MORPHINE SULFATE 4 MG/1ML SYG IV PRN (11:30)
[2020-05-02] MEDS ORDERED: GLYCOPYRROLATE 1 MG/5 ML SYRINGE IV PRN (11:30)
[2020-05-02] MEDS ORDERED: LORAZEPAM 2 MG/ML 1 ML VIAL IVP PRN (11:30)
== END 2020-05-02 14:50 | disposition expired | DRG 870 ==
LOC: EDH 10:16 → EDHIP 10:17 → 2DH 04-27 05:22
PROVIDERS: ADMIT Family Medicine; ATTEND Family Medicine
PROC: 5A12012 Performance of Cardiac Output, Single, Manual (ICD-10-PCS; 2020-04-26)
PROC: 5A1955Z Respiratory Ventilation, Greater than 96 Consecutive Hours (ICD-10-PCS; principal; 2020-04-27)
PROC: 0BH17EZ Insertion of Endotracheal Airway into Trachea, Via Natural or Artificial Opening (ICD-10-PCS; 2020-04-27)
PROC: 5A2204Z Restoration of Cardiac Rhythm, Single (ICD-10-PCS; 2020-04-27)
PROC: 5A1D70Z Performance of Urinary Filtration, Intermittent, Less than 6 Hours Per Day (ICD-10-PCS; 2020-04-29)
PROC: 02H633Z Insertion of Infusion Device into Right Atrium, Percutaneous Approach (ICD-10-PCS; 2020-04-29)
PROC: B548ZZA Ultrasonography of Superior Vena Cava, Guidance (ICD-10-PCS; 2020-04-29)
PROC: 5A1D70Z Performance of Urinary Filtration, Intermittent, Less than 6 Hours Per Day (ICD-10-PCS; 2020-05-01)
DX: A41.9 Sepsis, unspecified organism (principal); I50.33 Acute on chronic diastolic (congestive) heart failure; J96.21 Acute and chronic respiratory failure with hypoxia; J96.22 Acute and chronic respiratory failure with hypercapnia; I21.A1 Myocardial infarction type 2; J18.9 Pneumonia, unspecified organism; K76.7 Hepatorenal syndrome; N17.0 Acute kidney failure with tubular necrosis; R65.21 Severe sepsis with septic shock; E87.1 Hypo-osmolality and hyponatremia; F10.231 Alcohol dependence with withdrawal delirium; M62.82 Rhabdomyolysis; E66.2 Morbid (severe) obesity with alveolar hypoventilation; M48.54XA Collapsed vertebra, not elsewhere classified, thoracic region, initial encounter for fracture; Z68.43 Body mass index [BMI] 50.0-59.9, adult; K92.2 Gastrointestinal hemorrhage, unspecified; I46.9 Cardiac arrest, cause unspecified; I11.0 Hypertensive heart disease with heart failure; E87.8 Other disorders of electrolyte and fluid balance, not elsewhere classified; E11.9 Type 2 diabetes mellitus without complications; E03.9 Hypothyroidism, unspecified; K70.11 Alcoholic hepatitis with ascites; K70.40 Alcoholic hepatic failure without coma; K70.31 Alcoholic cirrhosis of liver with ascites; I48.0 Paroxysmal atrial fibrillation; Z20.822 Contact with and (suspected) exposure to COVID-19; D64.9 Anemia, unspecified; E78.5 Hyperlipidemia, unspecified; F41.9 Anxiety disorder, unspecified; K80.20 Calculus of gallbladder without cholecystitis without obstruction; I27.29 Other secondary pulmonary hypertension; R04.0 Epistaxis; Y90.0 Blood alcohol level of less than 20 mg/100 ml; Z91.19 Patient's noncompliance with other medical treatment and regimen; Z79.899 Other long term (current) drug therapy
CPT/HCPCS: 31500; 36415; 36600; 70450; 71045; 71250; 71275; 74176; 76705; 76770; 80048; 80053; 80061; 80074; 80076; 80202; 80305; 81001; 82040; 82140; 82435; 82436; 82550; 82565; 82570; 82728; 82803; 82947; 82948; 83036; 83540; 83550; 83605; 83735; 83880; 83930; 83935; 84100; 84132; 84145; 84156; 84295; 84300; 84443; 84478; 84484; 84520; 85014; 85018; 85025; 85027; 85610; 85730; 86701; 86704; 86706; 86850; 86900; 86901; 87040; 87088; 87340; 87390; 87426; 87520; 90935; 92950; 92960; 93005; 93306; 93970; 94002; 94003; A4330; C9113; G0378; J0171; J0282; J0692; J1644; J1650; J1815; J1940; J2060; J2270; J2354; J2370; J2543; J2704; J2765; J3010; J3370; J3411; J3490; J7030; J7050; J7060; J7070; P9046; P9047; Q9967; U0003